=== PATIENT | female | born 1985 | race Caucasian/White ===

== ENCOUNTER 2021-05-08 19:26 | Emergency (ER) | payer MEDICARE, MEDICAID, SELFPAY ==
[2021-05-08 19:39] VITALS: BP 122/91; PULSE 112; RESP 18; TEMP 36.9; O2SAT 98; BMI 39.2
--- NOTE | 2021-05-08 19:56 | W.ED.GENADLT ---
HPI - General Adult General: Chief complaint: Psychiatric Symptoms Stated complaint: Si Time Seen by Provider: 05/08/21 19:45 History of Present Illness: HPI narrative: HPI: [34]yo patient w/ hx of depression BIBA for acute suicidal ideations worsening x 4 days. On arrival, the patient is AAOx3 and cooperative with my evaluation. No focal complaints of chest pain, shortness of breath, palpitations, N/V, focal GI/ complaints. Denies HI, but endorses SI. Patient denies any ative plan but friend is worried that patient may be taking more than her usual dose of medicine. Patient tells me that since she has been off sertaline and hydroxyzine 2 months ago that her depression is getting worse. No complaints of hallucinations. Onset: chronic Duration: ongoing Location: home Severity: severe Review of Systems Narrative: Constitutional: No fever, no chills. HEENT: No vision changes CV: No chest pain, no palpitations PULM: No productive cough, no dyspnea. GI: No abdominal pain, no N/V/D. : No dysuria MSKEL: No muscle pain SKIN: No new rashes, no lesions. NEURO: No headache, no focal weakness. HEME: No visible bruises PSYCH: +Depressed mood, +SI Physical Exam Narrative: EXAM NARRATIVE: Head: Atraumatic Eyes: PERRL, conjunctiva without injection, eyes tracking ENT: Mucous membrane moist NECK: Supple without lymphadenopathy LUNGS: LCTAB CV: RRR ABDOMEN: Soft, nontender EXTREMITY: Normal ROM SKIN: No rash or erythema NEURO: Awake and alert. No focal weakness PSYCH: Cooperative mood and affect. +Depressed mood Course Vital Signs: Vital signs: Vital Signs Temperature 98.5 F 05/08/21 21:54 Pulse Rate 95 05/08/21 21:54 Respiratory Rate 16 05/08/21 21:54 Blood Pressure 151/102 05/08/21 21:54 Pulse Oximetry 98 05/08/21 21:54 MDM - General Adult MDM Narrative: Medical decision making narrative: [35]yo patient w/ hx of depression presenting for SI. HDS, exam within normal limit Thoughts are linear and organized, and the patient has no AH/VH, or HI. Clinically the patient displays no overt toxidrome; they are well appearing, with low suspicion for toxic ingestion given history and exam. Symptoms unlikely 2/2 anemia, hypothyroidism, infection, or ICH. Workup: CBC, CMP, Lipase, salicylate/tylenol, UDS, urine test Lab findings: wnl [10:30pm] On reassessment, labs and workup wnl. Patient is hemodynamically stable with no acute medical complaints. Case discussed with psychiatric provider Dr. Hussein Mesa at [facility] inpatient who evaluated patient via telepsych and recommended discharge with close follow-up. No need for medication changes. Disposition: Discharge Lab Data: Labs: Lab Results 05/08/21 05/08/21 05/08/21 20:14 20:14 20:14 WBC Cancelled Corrected WBC Cancelled RBC Cancelled Hgb Cancelled Hct Cancelled MCV Cancelled MCH Cancelled MCHC Cancelled RDW Cancelled Plt Count Cancelled MPV Cancelled Gran % Cancelled Neut % (Auto) Cancelled Lymph % (Auto) Cancelled Cloud % (Auto) Cancelled Eos % (Auto) Cancelled Baso % (Auto) Cancelled Neut # (Auto) Cancelled Lymph # (Auto) Cancelled Cloud # (Auto) Cancelled Eos # (Auto) Cancelled Baso # (Auto) Cancelled Absolute Gran (aut o) Cancelled Nucleated RBC % (a uto) Cancelled Nucleated RBCs # Cancelled Sodium Potassium Chloride Carbon Dioxide Anion Gap BUN Creatinine GFR Calculation Glucose Calculated Osmolal ity Calcium Ser , Vanita i-Qnt Cancelled Salicylates Urine Opiates Scre en Negative ng/mL ng /mL (Negative) Acetaminophen Ur Barbiturates Sc reen Negative ng/mL ng /mL (Negative) Ur Phencyclidine S crn Negative ng/mL ng /mL (Negative) Ur Amphetamines Sc reen Negative ng/mL ng /mL (Negative) U Benzodiazepines Scrn Negative ng/mL ng /mL (Negative) Urine Cocaine Scre en Negative ng/mL ng /mL (Negative) U Marijuana (THC) Screen Negative ng/mL ng /mL (Negative) 05/08/21 05/08/21 21:10 21:10 WBC 7.7 10^3/uL 10^3/ uL (4.0-10.0) Corrected WBC RBC 4.29 10^6/uL 10^6 /uL (4.1-5.3) Hgb 12.4 g/dL g/dL (11.5-15.3) Hct 36.7 % L % (37.0-47.0) MCV 85.5 fl fl (81-99) MCH 28.9 pg pg (28.0-34.0) MCHC 33.8 g/dL g/dL (30.0-36.0) RDW 12.2 % % (12.1-15.1) Plt Count 259 10^3/cmm 10^3 /cmm (130-400) MPV 9.0 fL fL (7.4-10.4) Gran % Neut % (Auto) 58.4 % % Lymph % (Auto) 34.2 % % Cloud % (Auto) 4.9 % % Eos % (Auto) 1.8 % % Baso % (Auto) 0.4 % % Neut # (Auto) 4.50 10^3/uL 10^3 /uL (1.8-7.7) Lymph # (Auto) 2.6 10^3/uL 10^3/ uL (0.8-4.8) Cloud # (Auto) 0.4 10^3/uL 10^3/ uL (0.2-0.9) Eos # (Auto) 0.1 10^3/uL 10^3/ uL (0.0-0.8) Baso # (Auto) 0.0 10^3/uL 10^3/ uL (0.0-0.1) Absolute Gran (aut o) Nucleated RBC % (a uto) 0 % % Nucleated RBCs # 0.0 /100WBC /100W BC Sodium 142 mmol/L mmol/L (136-145) Potassium 3.5 mmol/L mmol/L (3.5-5.1) Chloride 105 mmol/L mmol/L (98-107) Carbon Dioxide 24 mmol/L mmol/L (22-29) Anion Gap 12.5 (5-19) BUN 6 mg/dL mg/dL (6-20) Creatinine 0.4 mg/dL L mg/dL (0.5-0.9) GFR Calculation 180.6 mL/min H mL /min (90-130) Glucose 88 mg/dL mg/dL (65-115) Calculated Osmolal ity 291 mOsm/kg mOsm/ kg (285-295) Calcium 8.4 mg/dL L mg/dL (8.5-10.5) Ser , Vanita i-Qnt 0.50 mIU/mL mIU/m L Salicylates < 0.3 mg/dL L mg/ dL (3-10) Urine Opiates Scre en Acetaminophen < 5.0 ug/mL L ug/ mL (10-30) Ur Barbiturates Sc reen Ur Phencyclidine S crn Ur Amphetamines Sc reen U Benzodiazepines Scrn Urine Cocaine Scre en U Marijuana (THC) Screen Discharge Plan Discharge Patient Disposition: Home Clinical Impression: Suicidal ideations Condition: Stable Discharge Orders: Discharge ED (Routine); Ordered 05/08/21 Ordered By: Deborah Awan Referrals: Fernando Zuniga DO [Primary Care Provider] - Discharge Diet: Advance as tolerated Discharge Activity: Resume usual activity Patient Instructions: Depression (ED) Activity Restrictions/Additional Instructions: Come back to the emergency room if you are have any thoughts of hurting yourself or any new or concerning issues. Coding Level of Care Code ED Employer Relations Representative for [employer]ama Ramos
[2021-05-08] MEDS: sodium chloride 0.9% 1,000 ML 999 ML IV (20:00)
[2021-05-08 20:30] LABS: Amphetamines Screen Urine Negative (Negative); Barbiturates Screen Urine Negative (Negative); Benzodiazepines Screen Urine Negative (Negative); Cocaine Screen Urine Negative (Negative); Opiate Screen Urine Negative (Negative); PCP Screen Urine Negative (Negative); THC Screen Urine Negative (Negative)
[2021-05-08 21:03] LABS: Anion Gap 12.5 (5-19); Glucose 88 mg/dL (65-115); Osmolality Calculated 291 mOsm/kg (285-295); Sodium 142 mmol/L (136-145)
[2021-05-08 21:15] VITALS: BP 151/102; PULSE 95; RESP 16; O2SAT 98
[2021-05-08 21:16] LABS: Basophils % 0.4 %; Eosinophils # 0.1 10^3/uL (0.0-0.8); Eosinophils % 1.8 %; Hematocrit 36.7 % (37.0-47.0); Hemoglobin 12.4 g/dL (11.5-15.3); Lymphocytes # 2.6 10^3/uL (0.8-4.8); Lymphocytes % 34.2 %; Mean Corpuscular HGB Conc 33.8 g/dL (30.0-36.0); Mean Corpuscular Hemoglobin 28.9 pg (28.0-34.0); Mean Corpuscular Volume 85.5 fl (81-99); Monocytes # 0.4 10^3/uL (0.2-0.9); Monocytes % 4.9 %; Neutrophils % 58.4 %; Nucleated Red Blood Cells % 0 %; Platelet Count 259 10^3/cmm (130-400); Red Blood Count 4.29 10^6/uL (4.1-5.3); Red Cell Distribution Width 12.2 % (12.1-15.1); White Blood Count 7.7 10^3/uL (4.0-10.0)
--- NOTE | 2021-05-08 21:40 | P.CONIM_ITS ---
Providers/Reason for Consult Consulting Physican/Specialty*: Hussein Mesa MD Reason for Consult*: Assess suicidal ideation Primary Care Provider: Fernando Zuniga, DO Psych Consult HPI History of Present Illness Stella Pérez is a 35 year old female who has some sort of mental or cognitive disability requiring the presence of a caregiver throughout the day who presented to the ED with thoughts of harming herself. The ED note states: [34]yo patient w/ hx of depression BIBA for acute suicidal ideations worsening x 4 days. On arrival, the patient is AAOx3 and cooperative with my evaluation. No focal complaints of chest pain, shortness of breath, palpitations, N/V, focal GI/ complaints. Denies HI, but endorses SI. Patient denies any ative plan but friend is worried that patient may be taking more than her usual dose of medicine. Patient tells me that since she has been off sertaline and hydroxyzine 2 months ago that her depression is getting worse. No complaints of hallucinations. The patient was seen in the ED via televideo. Her caregiver Slime was present and contributed to the evaluation. Slime says she spends from 7 AM to 9 PM with the patient on a daily basis. The patient also calls Slime after hours for support. The patient describes emotional distress and after some exploration, it is learned that the agency who manages her care has decided that [employer] is not the best caregiver for her. In addition, the patient will move into a new home 3 days from now. The home will have 2 other male patients as well as [id number] staffing. It is inferred from the conversation, that the agency feels this will address the patient's need on a 24/7 basis. The patient says it is stressful as she is preparing to lose Slime, who has been her caregiver since February 09 of this year. The impending loss makes her anxious and, and in the past 4 days, she is started to have urges to cut herself. She says she has never cut herself before, and has only made slight scratches recently. She feels that cutting herself helps her to feel better emotionally. As long as Slime is present, she does not feel like hurting herself. Notably, she has no urge to kill herself or . Because she has only 2 more full days with her caregiver, the patient does not want to spend time apart. Therefore she prefers to go back home tonight, so that she will be there when Slime comes at 7 AM tomorrow. She feels she can take her bedside melatonin and go to sleep fairly soon. This will prevent her from feeling the anxiety she has had this evening. With this plan, her urges to harm herself have decreased, and she feels she can safely return home. She knows that she can return to the emergency room if the urges to cut herself or harm herself intensify again. As reported above, the patient confirms that her antidepressant medication was changed a couple of months ago. She was switched from Zoloft to Paxil. She reports that on Paxil, her urges to steal things have decreased. She does report worsening depression, however this could be due to her upcoming changes. Melatonin is still effective in helping her sleep. She is encouraged to make contact with her psychiatric provider for evaluation of any needed medication changes. She has made an appointment with her therapist for tomorrow. Mental Status Exam MSE Comments: I met with the patient in the ED via televideo, and she was casually dressed and appropriately groomed. She was anxious, but cooperative, interactive, and made good eye contact. Mild psychomotor agitation. Speech is at a regular rate and rhythm, normal volume, good articulation, but mildly pressured at times. Alert, oriented to person, place, time, situation. Attention and concentration were intact to exam. Memory is intact to exam. Mood is depressed and anxious. Affect is worried but calms down as we talk. Thought process is logical but somewhat rambling. Thought content: Denies auditory and visual hallucinations. No delusions or paranoia are noted. No current suicidal ideation, and no homicidal ideation. She does have some urges to cut her skin but feels she can control them. Fund of knowledge is intact to exam. Language is intact to exam. Insight and judgment appear to be limited but adequate for her needs when she receives the support of her caregiver. Impulse control is fair as well. Vitals/I&O/Wt Last Vital Signs Temp 98.5 F 05/08/21 21:54 Pulse 95 05/08/21 21:54 Resp 16 05/08/21 21:54 BP 151/102 05/08/21 21:54 Pulse Ox 98 05/08/21 21:54 05/08/21 05/08/21 05/09/21 14:59 22:59 06:59 Intake Total 1000 / 1000 Balance 1000 / 1000 Weight last 48 hrs Weight 79.379 kg A&P Assessment and plan (1) Adjustment disorder with mixed anxiety and depressed mood: Status: Acute (2) Suicidal ideations: Status: Acute Additional A&P Information The patient is having increased anxiety about a change in her living and caregiving situation. The changes are designed to provide her additional support. She currently has a caregiver from 7 am to 9 pm, but has been making calls to the caregiver at night. In the new situation, she will live in a home with 2 other male residents, and they will have round the clock caregiving. The patient feels she is able to manage her urges to cut herself this evening. She has a therapy appointment with her therapist tomorrow. She has made contact with her psychiatric provider and is encouraged to ask her provider about any medication changes that may be needed. She and her caregiver agree to this plan Attestations U Medical Necessity Statement*: Per ED provider. Coding Level of Care Code Acute Dimpling Machine Operator for Adama Fwgraciela Diagnoses Adjustment disorder with mixed anxiety and depressed mood F43.23 Suicidal ideations R45.851
[2021-05-08 21:54] VITALS: BP 151/102; PULSE 95; RESP 16; TEMP 36.9; O2SAT 98
[2021-05-08 21:56] LABS: Blood Urea Nitrogen 6 mg/dL (6-20); Carbon Dioxide 24 mmol/L (22-29); Chloride 105 mmol/L (98-107); Potassium 3.5 mmol/L (3.5-5.1)
[2021-05-08 21:58] LABS: Acetaminophen < 5.0 ug/mL (10-30); Calcium 8.4 mg/dL (8.5-10.5); Glomerular Filtration Rate 180.6 mL/min (90-130); Salicylate < 0.3 mg/dL (3-10)
== END 2021-05-08 21:54 | disposition home or self-care (01) ==
LOC: ER 20:06
PROVIDERS: Emergency Provider Emergency Medicine; PCP Internal Medicine
DX: R45.851 Suicidal ideations (principal)
CPT/HCPCS: 36415; 80048; 80306; 80307; 84702; 85025; 96360; 99284; J7030

== ENCOUNTER 2021-12-06 21:13 | Emergency (ER) | payer MEDICARE, MEDICAID, SELFPAY ==
[2021-12-06 21:15] VITALS: BP 131/88; PULSE 96; RESP 18; TEMP 36.3; O2SAT 97
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
--- NOTE | 2021-12-06 21:28 | XRR_ITS ---
PROCEDURE INFORMATION: Exam: XR Right Hand Exam date and time: 12/06/2021 9:40 PM Age: 36 years old Clinical indication: Pain; Hand; Right; Additional info: Injury TECHNIQUE: Imaging protocol: XR Right hand. Views: 3 or more views. COMPARISON: No relevant prior studies available. FINDINGS: Bones/joints: Normal. Soft tissues: Normal. XR/XR hand RT min 3V* [id number] IMPRESSION: No acute findings.
[2021-12-06] MEDS: acetaminophen 500 mg Tablet 1000 MG PO (22:18)
[2021-12-06 22:55] VITALS: BP 130/99; RESP 18; TEMP 36.7
== END 2021-12-06 22:57 | disposition home or self-care (01) ==
PROVIDERS: Emergency Provider Nurse Practitioner Family; PCP Internal Medicine
DX: S09.90XA Unspecified injury of head, initial encounter (principal); Y04.2XXA Assault by strike against or bumped into by another person, initial encounter
CPT/HCPCS: 70450; 73130; 99283

== ENCOUNTER 2022-02-05 19:26 | Emergency (ER) | payer MEDICARE, MEDICAID, SELFPAY ==
[2022-02-05 19:27] VITALS: BP 152/97; PULSE 99; RESP 22; O2SAT 98; BMI 31.8
--- NOTE | 2022-02-05 19:28 | XRR_ITS ---
PROCEDURE INFORMATION: Exam: XR Chest Exam date and time: 02/05/2022 7:50 PM Age: 36 years old Clinical indication: Angina; Additional info: Chest pain TECHNIQUE: Imaging protocol: Radiologic exam of the chest. Views: 1 view. COMPARISON: CR Chest 1 [place] [id number] 06/22/2018 8:28 PM FINDINGS: Lungs: Unremarkable. No consolidation. Pleural spaces: Unremarkable. No pleural effusion. No pneumothorax. Heart/Mediastinum: Unremarkable. No cardiomegaly. Bones/joints: Unremarkable. XR/XR chest 1V portable [id number] IMPRESSION: No acute findings.
[2022-02-05 19:33] VITALS: TEMP 36.9
--- NOTE | 2022-02-05 19:43 | ED_ITS ---
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 Patient was carrying bucket of ice around 3:00 when the chest pain started. No family history of cardiac disease. No associated with shortness of breath, chest pain or dyspnea on exertion. Pain is not tearing in nature and does not radiate to the back. Pain not associated with vomiting or PO intake. Denies any recent sympathomimetic drug use. Patient denies any cough. Denies palpitations, dysphagia, diaphoresis, radiation of pain to bilateral a rylan, jaw. Denies F/N/V/D. Patient denies any recent immobility, surgery, unilateral leg swelling, or prior PE. Patient denies any orthopnea. Onset: 1500 Duration: ongoing intermittent for the last 4 hrs Location: home Severity: mild/moderate Associated symptoms: Reports chest pain; Deny dyspnea, nausea, rash, palpitations or vomiting Review of Systems Const: Denies: fever(s) or chills Eyes: Denies: change in vision ENMT: Denies: mouth pain Card: Reports: chest pain; Denies: palpitations Resp: Denies: dyspnea or non-productive cough GI: Denies: abdominal pain, nausea, vomiting or diarrhea : Denies: dysuria Musc: Denies: extremity pain Skin/Breast: Denies: rash or new lesions Neuro: Denies: weakness in extremities Psych: Reports: other (Normal mood) George/Lymph: Denies: easy bruising PFS ED PFSH: Medical History (Updated 02/05/22 @ 19:49 by Deborah Awan MD) No pertinent past medical history Social History (Updated 02/05/22 @ 19:46 by Deborah Awan MD) Smoking and tobacco status: never smoked Alcohol intake: never Substance/Drug Use: never Physical Exam Const: COMMON NORMALS: alert HENMT: COMMON NORMALS: atraumatic HEAD & SCALP: atraumatic MOUTH: moist mucous membranes not abnormal Eye: COMMON NORMALS: EOMs intact bilaterally and conjunctivae normal CONJUNCTIVA: Yes conjunctivae normal Neck/C-Spine: COMMON NORMALS: full ROM and supple Resp: COMMON NORMALS: normal respiratory effort and clear to auscultation bilaterally AUSCULTATION: clear to auscultation bilaterally Cardio: RATE: tachycardic OTHER: 2+ radial pulses b/l GI: COMMON NORMALS: Soft to palpation and non-tender PALPATION: Yes Soft to palpation Extremity: COMMON NORMALS: full ROM OTHER: no LE swelling Neuro: SENSORIUM/ORIENTATION: Yes alert MOTOR EXAM: No Abnormal motor strength present and Other motor observations present (no focal motor deficits) Psych: COMMON NORMALS: speech normal SPEECH: Yes normal speech MOOD & AFFECT: Yes euthymic mood Course Vital Signs: Vital signs: Vital Signs Temperature 98.5 F 02/05/22 19:33 Pulse Rate 99 02/05/22 19:27 Respiratory Rate 22 H 02/05/22 19:27 Blood Pressure 152/97 02/05/22 19:27 Pulse Oximetry 98 02/05/22 19:27 MDM - General Adult Medical Decision Making [36]yo patient w/ hx of OCP use presenting to the ED with evaluation of new onset sharp chest pain since 1499. HDS with mild tachycardiac , pulse 2+ radially bilaterally, no signs of fluid overload, AAOx3, neuro exam intact. Given History and Exam today I have low suspicion for ACS, Pneumothorax, Pneumonia, Pulmonary Embolus, Tamponade, Aortic Dissection or other emergent problems as a cause for this presentation. Will evaluate for PE given sudden onset of pain, mild tachycardia on arrival and hx of OCP use. Workup: ECG x 2, CXR, CBC, BMP, Troponin x 2, dimer Interventions: Tylenol Findings: ECG: No overt evidence of STEMI, hyperacute T waves, localizable STD or T wave inversions. No evidence of Brugada?s sign, delta wave, epsilon wave, significantly prolonged QTc, or malignant arrhythmia. No Q waves. Other Labs unremarkable for emergent problems. CXR: Without PTX, PNA, or widened mediastinum Last Stress Test: never Last Heart Catheterization: never HEART Score: 1 (story) Dimer wnl [8:19pm] On reassessment, the patient is HDS, no complaints of persistent chest pain in the ED after evaluation. HR improved while observed. ECG is non- ischemic. Workup today is unremarkable. Doubt ACS/PE or other emergent causes of chest pain. Doubt ACS/PE or other emergent causes of chest pain. Patient has a heart score of 1. No suspicion for aortic dissection given no widened mediastinum, 2+ upper extremity pulses, or tearing pain. No suspicion for PE given no pleuritic chest pain, recent immobilization or surgery hemoptysis, or other VTE risk factors. EKG is non-ischemic. XR normal. Rx: Tylenol 500mg Q6Hrs x 5 days PRN pain Disposition: Discharge. Strict return precautions discussed with the patient with full understanding. Advised patient to follow up promptly with a primary care provider in 24-48 hrs if the patient has persistent symptoms. Given return instructions for any crushing/tearing chest pain, focal weakness, syncope or any new or concerning issues. Lab Data : 02/05/22 19:30 02/05/22: Radiology Impressions Chest X-Ray 02/05/22 IMPRESSION: No acute findings. Laboratory Results WBC 8.7 10^3/uL (4.0-10.0) 02/05/22: RBC 4.58 10^6/uL (4.1-5.3) 02/05/22: Hgb 13.0 g/dL (11.5-15.3) 02/05/22: Hct 37.7 % (37.0-47.0) 02/05/22: MCV 82.3 fl (81-99) 02/05/22 19: MCH 28.4 pg (28.0-34.0) 02/05/22: MCHC 34.5 g/dL (30.0-36.0) 02/05/22: RDW 12.4 % (12.1-15.1) 02/05/22: Plt Count 266 10^3/cmm (130-400) 02/05/22: MPV 9.4 fL (7.4-10.4) 02/05/22: Neut % (Auto) 59.4 % 02/05/22: Lymph % (Auto) 31.8 % 02/05/22: [place] % (Auto) 6.0 % 02/05/22: Eos % (Auto) 2.3 % 02/05/22: Baso % (Auto) 0.3 % 02/05/22 19:30 Neut # (Auto) 5.14 10^3/uL (1.8-7.7) 02/05/22 19:30 Lymph # (Auto) 2.8 10^3/uL (0.8-4.8) 02/05/22 19:30 [place] # (Auto) 0.5 10^3/uL (0.2-0.9) 02/05/22 19:30 Eos # (Auto) 0.2 10^3/uL (0.0-0.8) 02/05/22 19:30 Baso # (Auto) 0.0 10^3/uL (0.0-0.1) 02/05/22 19:30 Nucleated RBC % (auto) 0 % 02/05/22 19: Nucleated RBCs # 0.0 /100WBC 02/05/22 19:30 D-Dimer 0.41 ug/mIFEU (0-0.59) 02/05/22 19:30 Sodium 137 mmol/L (136-145) 02/05/22 19:30 Potassium 3.8 mmol/L (3.5-5.1) 02/05/22 19:30 Chloride 100 mmol/L (98-107) 02/05/22 19:30 Carbon Dioxide 26 mmol/L (22-29) 02/05/22 19:30 Anion Gap 14.8 (5-19) 02/05/22 19:30 BUN 8 mg/dL (6-20) 02/05/22 19:30 Creatinine 0.5 mg/dL (0.5-0.9) 02/05/22 19:30 GFR Calculation 138.8 mL/min (90-130) H 02/05/22 19:30 Glucose 115 mg/dL (65-115) 02/05/22 19:30 Calculated Osmolality 283 mOsm/kg (285-295) L 02/05/22 19:30 Calcium 9.7 mg/dL (8.5-10.5) 02/05/22 19:30 Troponin T Baseline 6 ng/L (0-10) 02/05/22 19:30 Imaging Data Other Imaging: Radiologist's impression: [employer] [place] [address] XRay Report Signed Patient: Stella Pérez Unit #: [id number] : 1985 Age/Sex: 36 / F ADM Date: 02/05/22 Loc: ER Room/Bed: Attending Dr: Ordering Provider/Ordering MD: Deborah Awan MD Date of Service: 02/05/22 Procedure(s): XR chest 1V portable [id number] Accession Number(s): [id number] Report Number: [id number] PROCEDURE INFORMATION: Exam: XR Chest Exam date and time: 02/05/2022 7:50 PM Age: 36 years old Clinical indication: Angina; Additional info: Chest pain TECHNIQUE: Imaging protocol: Radiologic exam of the chest. Views: 1 view. COMPARISON: CR Chest 1 [place] [id number] 06/22/2018 8:28 PM FINDINGS: Lungs: Unremarkable. No consolidation. Pleural spaces: Unremarkable. No pleural effusion. No pneumothorax. Heart/Mediastinum: Unremarkable. No cardiomegaly. Bones/joints: Unremarkable. XR/XR chest 1V portable [id number] IMPRESSION: No acute findings. ? Dictated By: Jacques Silva MD Signed By: Jacques Silva MD Signed Date/Time: 02/05/222042 DD/ 49 Discharge Plan Discharge Patient Disposition: Home Clinical Impression: Chest pain Condition: Stable Prescriptions: New acetaminophen 500 mg tablet 500 mg PO Q6H PRN (Reason: pain) 5 Days Qty: 20 0RF No Action ondansetron 4 mg tablet,disintegrating 4 mg PO Q8H PRN (Reason: nausea and vomiting) Qty: 7 0RF Discharge Orders: Discharge ED (Routine); Ordered 02/05/22 Ordered By: Deborah Awan Referrals: Fernando Zuniga DO [Primary Care Provider] - Discharge Diet: Advance as tolerated Discharge Activity: Increase activity as tolerated Patient Instructions: Chest Pain (ED) Activity Restrictions/Additional Instructions: Come back to the emergency room if your chest pain worsens, have any fever or chills, worsening shortness of breath, worsening exertional lightheadedness, or any new or concerning complaints. Coding Level of Care Code ED Wildlife Control Operator for Chg Fwd Exam Comprehensive
[2022-02-05 19:45] VITALS: BP 136/89; PULSE 86; RESP 20; O2SAT 96
[2022-02-05 19:55] LABS: Basophils % 0.3 %; Eosinophils # 0.2 10^3/uL (0.0-0.8); Eosinophils % 2.3 %; Hematocrit 37.7 % (37.0-47.0); Lymphocytes # 2.8 10^3/uL (0.8-4.8); Lymphocytes % 31.8 %; Mean Corpuscular HGB Conc 34.5 g/dL (30.0-36.0); Mean Corpuscular Hemoglobin 28.4 pg (28.0-34.0); Mean Corpuscular Volume 82.3 fl (81-99); Mean Platelet Volume 9.4 fL (7.4-10.4); Monocytes # 0.5 10^3/uL (0.2-0.9); Neutrophils # 5.14 10^3/uL (1.8-7.7); Neutrophils % 59.4 %; Nucleated Red Blood Cells % 0 %; Platelet Count 266 10^3/cmm (130-400); Red Blood Count 4.58 10^6/uL (4.1-5.3); Red Cell Distribution Width 12.4 % (12.1-15.1); White Blood Count 8.7 10^3/uL (4.0-10.0)
[2022-02-05 20:00] VITALS: BP 136/92; PULSE 83; RESP 17; O2SAT 97
[2022-02-05 20:09] LABS: D Dimer 0.41 ug/mIFEU (0-0.59)
[2022-02-05 20:16] LABS: Anion Gap 14.8 (5-19); Blood Urea Nitrogen 8 mg/dL (6-20); Calcium 9.7 mg/dL (8.5-10.5); Carbon Dioxide 26 mmol/L (22-29); Chloride 100 mmol/L (98-107); Glomerular Filtration Rate 138.8 mL/min (90-130); Glucose 115 mg/dL (65-115); Osmolality Calculated 283 mOsm/kg (285-295); Potassium 3.8 mmol/L (3.5-5.1); Sodium 137 mmol/L (136-145); Troponin(5th) Baseline 6 ng/L (0-10)
[2022-02-05] MEDS: acetaminophen 500 mg Tablet PO (20:23)
[2022-02-05 20:45] VITALS: BP 128/87; PULSE 85; RESP 17; O2SAT 98
--- NOTE | 2022-02-05 21:28 | ECG_ITS ---
[facility] Test Date: 2022-02-05 Pat Name: Stella Pérez Department: Room: Gender: Female Echo Technologist: : 1985 Requested By: Deborah Awan Order Number: [id number] Gabe MD: Rick Crump M.D. Measurements Intervals [place] Rate: 92 P: 12 CT: 136 QRS: 50 QRSD: 109 T: 43 QT: 377 QTc: 467 Interpretive Statements SINUS RHYTHM INCOMPLETE RIGHT BUNDLE BRANCH BLOCK [90+ ms QRS DURATION, TERMINAL R IN V1/V2, 40+ ms S IN I/aVL/V4/V5/V6] Compared to ECG 06/22/2018 20:22:10 No significant changes Electronically Signed On 02-05-2022 23:26:12 CDT by Rick Crump M.D. [id number]
== END 2022-02-05 21:14 | disposition home or self-care (01) ==
PROVIDERS: Emergency Provider Emergency Medicine; PCP Internal Medicine
DX: R07.9 Chest pain, unspecified (principal); R00.0 Tachycardia, unspecified
CPT/HCPCS: 71045; 80048; 84484; 85025; 85378; 93005; 99284

== ENCOUNTER 2022-03-13 07:03 | Outpatient (CLI) | payer MEDICARE, MEDICAID, SELFPAY ==
--- NOTE | 2022-03-13 07:47 | US_ITS ---
WS: [id number] Complete ABDOMINAL ULTRASOUND HISTORY: ELEVATED ALKALINE PHOSPHATASE LEVEL COMPARISON: None available. Liver: 15.4 cm in length. Liver is normal size. Moderate coarse echogenicity throughout the liver. Chris rface of the liver is very slightly nodular. No mass or bile duct dilatation. The entire liver is not well visualized due to body habitus and attenuation. Portal Vein: Normal hepatopetal flow with monophasic waveform. Gallbladder: Normal gallbladder with cholelithiasis. Largest stones measure 1.2 cm in diameter. No wa ll thickening or pericholecystic fluid. Gallbladder wall thickness: 0.2 cm. Pancreas: Normal size and echogenicity. CBD: 0.3 cm. Right kidney: 10.9 cm x 5.5 cm x 4.9 cm. No mass, cortical thickening or hydronephrosis. Left kidney: 11.1 cm x 5.2 cm x 3.6 cm. No mass, cortical thickening or hydronephrosis. Spleen: Normal size and echogenicity. Spleen measures 12.7 cm in length. Abdominal aorta and IVC are within normal limits. No ascites. US/US abdomen complete* [id number] IMPRESSION: 1. Cholelithiasis without acute cholecystitis. 2. Normal size liver with hepatic steatosis.
== END 2022-03-13 07:04 | disposition home or self-care (01) ==
LOC: RAD 07:04
PROVIDERS: PCP Nurse Practitioner Family; Visit Provider Nurse Practitioner Family
DX: R74.8 Abnormal levels of other serum enzymes (principal); K80.20 Calculus of gallbladder without cholecystitis without obstruction; K76.0 Fatty (change of) liver, not elsewhere classified
CPT/HCPCS: 76700

== ENCOUNTER 2022-10-12 10:23 | Outpatient (CLI) | payer MEDICARE, MEDICAID, SELFPAY ==
--- NOTE | 2022-10-12 10:29 | FL_ITS ---
WS: [id number] FL barium swallow [id number] REASON FOR EXAM: DYSPHAGIA FLUOROSCOPY TIME: 2min [id number] # OF SPOT FILMS: 11 FINDINGS: Patient was examined in the upright and prone MAJANO positions. Multiple swallows of barium were monitor ed fluoroscopically and recorded with multiple spot films. The cervical esophagus appeared normal with no findings of aspiration. No Zenker's diverticulum. When the barium entered the thoracic esophagus there was a significant decrease in the velocity of th e peristalsis. Peristalsis in the thoracic esophagus was weak with prolonged retention of barium even in the upright position. A number of tertiary contractions were identified. The barium cleared with additional swallows. Small hiatal hernia was identified without stricture or significant reflux. FL/FL barium swallow [id number] IMPRESSION: Abnormal motility of the thoracic esophagus.
--- NOTE | 2022-10-12 10:29 | CT_ITS ---
WS: [id number] CT NECK TECHNIQUE: Contrast-enhanced CT of the neck with coronal and sagittal reformatted images. CLINICAL INFORMATION: DYSPHAGIA COMPARISON: None. DLP: 277.[address] scans at [facility] use at least one of these dose optimization techniques: automated e xposure control; mA and/or kV adjustment per patient size (includes targeted exams where dose is matc hed to clinical indication); or iterative reconstruction. FINDINGS: Mastoid air cells well aerated. Mild mucosal thickening in the RIGHT frontoethmoidal recess and RIGHT ethmoid air cells. Mucosal thickening RIGHT sphenoid sinus. Mild mucosal thickening RIGHT maxillary sinus. Normal posterior nasopharynx. Normal parapharyngeal fat. Lung base appears normal. No supraglottic or glottic mass. Subglottic airway is patent. Lung apices are well aerated. Subsegmental atelectasis LE FT upper lobe anteriorly. Parotid glands are normal. Normal submandibular glands. A few prominent sub mandibular lymph nodes not pathologically enlarged. Elongated enlarged LEFT jugulodigastric lymph node measuring 1.2 x 1.4 x 3.6 cm AP by transverse by c raniocaudal. Additional numerous cervical chain lymph nodes prominent but not pathologically enlarged . CT/CT neck w con* [id number] IMPRESSION: 1. Normal parotid glands. Normal submandibular glands. 2. No evidence of supraglottic or glottic mass. Normal subglottic airway. 3. Elongated enlarged LEFT jugulodigastric lymph node measuring 1.2 x 1.4 x 3. 6 cm AP by transverse by craniocaudal. This is nonspecific but may be reactive in a patient this age. Consider 3 month contrast-enhanced neck CT follow-up. If suspicion for neoplasm, PET/CT could be performed 4. Additional slightly prominent but not pathologically enlarged cervical louann n lymph nodes most likely reactive. 5. Mild mucosal thickening in the RIGHT frontal ethmoidal recesses RIGHT ethmo id air cells. 6. No other acute findings.
[2022-10-12] MEDS: iohexol 350 mg/mL 500 mL Btl (per mL) IV (10:44)
== END 2022-10-12 10:24 | disposition home or self-care (01) ==
PROVIDERS: PCP Nurse Practitioner Family; Visit Provider Specialist
DX: R13.10 Dysphagia, unspecified (principal)
CPT/HCPCS: 70491; 74220; Q9967

== ENCOUNTER 2023-02-24 20:02 | Emergency (ER) | payer MEDICARE, MEDICAID, SELFPAY ==
[2023-02-24 20:04] VITALS: BP 130/85; PULSE 96; RESP 16; TEMP 37.1; O2SAT 97; BMI 39.6
[2023-02-24 21:10] VITALS: BP 132/84; PULSE 94; RESP 16; O2SAT 98
--- NOTE | 2023-02-24 21:13 | XRR_ITS ---
PROCEDURE INFORMATION: Exam: XR Right Hand Exam date and time: 02/24/2023 9:33 PM Age: 37 years old Clinical indication: Injury or trauma; Blunt trauma (contusions or hematomas); Right; Patient HX: Punched a tree. Bruising to posterior aspect of hand across metacarpals. ; Additional info: R hand/finger injury TECHNIQUE: Imaging protocol: Radiologic exam of the right hand. Views: 3 or more views. COMPARISON: No relevant prior studies available. FINDINGS: Bones/joints: Normal. Soft tissues: Normal. XR/XR hand RT min 3V* [id number] IMPRESSION: No acute findings.
[2023-02-24] MEDS: oxyCODONE-APAP 5-325 mg Tablet 2 TAB PO (21:23)
[2023-02-25 00:34] VITALS: BP 132/84; PULSE 94; RESP 16; TEMP 37.1; O2SAT 98
--- NOTE | 2023-02-25 17:54 | ED_ITS ---
HPI - Extremity Problem General: Chief complaint: Extremity Injury, Upper Stated complaint: FINGER PAIN Time Seen by Provider: 02/24/23 21:13 History of Present Illness: 37 year old female who became upset earlier in the day. Around 6:00 PM, she punched a tree. She has pain to her ring finger. Some swelling and bruising. She has tried ice and ibuprofen without much relief period no deformity. Associated symptoms: Deny chest pain Review of Systems Card: Denies: chest pain Resp: Denies: dyspnea GI: Denies: abdominal pain PFSH ED PFSH: Medical History No pertinent past medical history Social History Smoking and tobacco status: never smoked Alcohol intake: never Substance/Drug Use: never Physical Exam Const: COMMON NORMALS: no acute distress GENERAL APPEARANCE: cooperative; not ill appearing HENMT: COMMON NORMALS: normocephalic HEAD & SCALP: normocephalic Eye: COMMON NORMALS: Equal, round and reactive pupils present and EOMs intact bilaterally PUPIL: Yes Equal, round and reactive pupils present Resp: COMMON NORMALS: normal respiratory effort and No use of accessory muscles Cardio: COMMON NORMALS: regular rate and regular rhythm RATE: regular rate RHYTHM: regular rhythm Extremity: NARRATIVE EXTREMITY EXAM: Examination of the right upper extremity reveals some slight bruising over the right ring finger. No deformity. Minimal swelling. Sensation and capillary refill are normal. Course Vital Signs: Vital signs: Vital Signs Temperature 98.7 F 02/25/23 00:34 Pulse Rate 94 02/25/23 00:34 Respiratory Rate 16 02/25/23 00:34 Blood Pressure 132/84 02/25/23 00:34 Pulse Oximetry 98 02/25/23 00:34 Oxygen Delivery Me thod Room Air 02/24/23 20:04 MDM - Extremity (Nontraumatic) Medical Decision Making Imaging negative for fracture. Ice, pain control, outpatient follow up. Lab Data Radiology Impressions Hand X-Ray 02/24/23 21:13 IMPRESSION: No acute findings. Discharge Plan Discharge Patient Disposition: Home Clinical Impression: Contusion of right hand including fingers Condition: Stable Prescriptions: New ketorolac 10 mg tablet 10 mg PO TID PRN (Reason: pain) Qty: 10 0RF No Action ondansetron 4 mg tablet,disintegrating 4 mg PO Q8H PRN (Reason: nausea and vomiting) Qty: 7 0RF Discharge Orders: Discharge ED (Routine); Ordered 02/24/23 Ordered By: Wesley Tuttle Referrals: Amelie Evans FNP [Primary Care Provider] - 4-7 days Patient Instructions: Contusion in Adults (ED), Pain Management Activity Restrictions/Additional Instructions: No fracture was noted on your x-ray. Ice for pain. Pain medication as directed. See your doctor next week, for repeat exam. Coding Level of Care Code ED Linseed Oil Boiler for Adama aRmos
== END 2023-02-25 00:35 | disposition home or self-care (01) ==
PROVIDERS: Emergency Provider Emergency Medicine; PCP Nurse Practitioner Family
DX: S60.041A Contusion of right ring finger without damage to nail, initial encounter (principal); W22.09XA Striking against other stationary object, initial encounter
CPT/HCPCS: 73130; 99283

== ENCOUNTER → 2023-09-09 09:00 | Outpatient (BNVA) | payer MEDICARE, MEDICAID, SELFPAY | PROVIDERS: PCP Nurse Practitioner Family; Referring Provider Nurse Practitioner Family; Visit Provider Nurse Practitioner Women's Health | DX: Z01.411 Encounter for gynecological examination (general) (routine) with abnormal findings (principal) | CPT/HCPCS: 87624 ==

== ENCOUNTER 2023-09-12 07:56 | Outpatient (CLI) | payer MEDICARE, MEDICAID, SELFPAY ==
--- NOTE | 2023-09-12 08:00 | CT_ITS ---
WS: [id number] CT NECK WITH CONTRAST HISTORY: LOCALIZED SWELLING,MASS, LUMP, NECK TECHNIQUE: Contiguous 2 mm axial images are performed through the neck with intravenous contrast. Sag ittal and coronal reformats are also submitted. All CT scans at [facility] use at least one o f these dose optimization techniques: automated exposure control; mA and/or kV adjustment per patient size (includes targeted exams where dose is matched to clinical indication); or iterative reconstruc tion. CONTRAST: CONTRAST: Omnipaque 350; 100 mL IV. DLP: 172.78 mGy.cm COMPARISON: 10/12/2022 Marker is placed along the LEFT neck at the area of the palpable abnormality. Just deep to the marker is a normal-appearing sternocleidomastoid muscle. No mass or adenopathy of any significance. Nasopharynx, oropharynx, hypopharynx and larynx are unremarkable. No soft tissue masses or abnormal e nhancement. Torus tubarius and fossa of Rosenmuller and parapharyngeal fat are normal. Reidentified is the mildly enlarged LEFT level 2 lymph node which was described on 10/12/2022. This lym ph node is reidentified and slightly smaller in diameter although continues to be elongated over a le ngth of 3.1 cm. Normal return of the fatty hilum. The lymph node is no longer hypervascular. There ar e a few additional smaller bilateral cervical chain lymph nodes. None of these lymph nodes appear abn ormal. Thyroid gland and salivary glands are normally enhancing with no masses. No osseous abnormalities. Visualized portions of the skull base demonstrate no abnormalities. Orbits and globes are within norm al limits. No soft tissue masses. LEFT maxillary sinus small mucous retention cyst. Lung apices are clear. IMPRESSION: 1. Palpable area along the LEFT neck is at the level of the sternocleidomastoid muscle which is norm al. 2. The previously described enlarged LEFT level 2 lymph node is reidentified. This lymph node has sl ightly decreased in size and is no longer hypervascular. Returned of the normal fatty hilum. Lymph no de continues to be mildly enlarged but otherwise appears normal. No adenopathy.
[2023-09-12] MEDS: iohexol 350 mg/mL 500 mL Btl (per mL) IV (08:45)
== END 2023-09-12 07:57 | disposition home or self-care (01) ==
LOC: RAD 07:56
PROVIDERS: PCP Nurse Practitioner Family; Visit Provider Specialist
DX: R22.1 Localized swelling, mass and lump, neck (principal)
CPT/HCPCS: 70491; Q9967